=== PATIENT | male | born 1950 | race Caucasian/White ===

== ENCOUNTER 2022-09-24 12:28 | Outpatient (CLI) | payer MEDICARE | END 2022-09-24 12:29 | disposition critical access hospital (66) | LOC: EMS 12:28 | DX: M25.552 Pain in left hip (principal); M25.512 Pain in left shoulder; W11.XXXA Fall on and from ladder, initial encounter; Y92.61 Building [any] under construction as the place of occurrence of the external cause | CPT/HCPCS: A0425; A0427 ==

== ENCOUNTER 2022-09-24 12:44 | Emergency (ER) | payer MEDICARE, OTHER ==
--- NOTE | 2022-09-24 12:48 | ED Physician Documentation ---
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 No loss of consciousness or head strike. He complains of left shoulder and left hip pain. No other injuries. Pain is mild on arrival after [address] of f[address] on the way here. PD PAST MEDICAL HISTORY - Allergies Allergies/Adverse Reactions: Allergies Allergy/AdvReac Type Severity Reaction Status Date / Time No Known Drug Allergies Allergy Verified 09/24/22 14:11 PD ED PE NORMAL - Vitals Vital signs reviewed: Yes - General General: Alert and oriented X 3, No acute distress - HEENT HEENT: PERRL, EOMI - Neck Neck: Supple, no meningeal sign, No bony TTP, C-Spine cleared by NEXUS criteria (He arrives in a c-collar and it was removed on exam at 12:45 PM as he is cleared by Nexus criteria.) - Cardiac Cardiac: RRR, No murmur - Respiratory Respiratory: No respiratory distress, Clear bilaterally, Other (Mild tenderness left lateral lower ribs.) - Abdomen Abdomen: Soft, Non tender - Back Back: No CVA TTP, No spinal TTP - Derm Derm: Normal color, Warm and dry - Extremities Extremities: No deformity, Other (Some tenderness of the glenohumeral joint and unable to range the left shoulder. Internal and external rotation of the left hip is painless but he does have pain with lateral compression of the pelvis. No deformity.) - Neuro Neuro: Alert and oriented X 3, Normal speech Eye Opening: Spontaneous Motor: Obeys Commands Verbal: Oriented GCS Score: 15 Results - Vitals Vitals: Vital Signs - 24 hr 09/24/22 09/24/22 09/24/22 12:35 12:43 13:33 Temperature 36.9 C Heart Rate 75 77 Respiratory 18 18 17 Rate Blood Pressure 129/79 O2 Saturation 99 100 09/24/22 09/24/22 09/24/22 13:43 14:20 15:30 Temperature Heart Rate 85 Respiratory 21 17 18 Rate Blood Pressure 111/84 H O2 Saturation 98 09/24/22 09/24/22 15:47 18:02 Temperature 36.6 C Heart Rate 94 96 Respiratory 19 16 Rate Blood Pressure 123/82 H 119/83 H O2 Saturation 98 99 Oxygen O2 Source Room air - Labs Labs: Laboratory Tests 09/24/22 09/24/22 09/24/22 16:31 16:31 16:31 WBC 15.9 H RBC 3.77 L Hgb 12.7 L Hct 36.7 L MCV 97.3 H MCH 33.7 H MCHC 34.6 RDW 12.5 Plt Count 139 MPV 10.1 Neut # (Auto) 13.2 H Lymph # (Auto) 1.0 L [place] # (Auto) 1.4 H Eos # (Auto) 0.0 Baso # (Auto) 0.1 Absolute Nucleated RBC 0.00 Nucleated RBC % 0.0 PT 12.7 H INR 1.1 Sodium 138 Potassium 3.6 Chloride 106 Carbon Dioxide 22 Anion Gap 10.0 BUN 22 H Creatinine 1.0 Estimated GFR (MDRD) 73 L Glucose 174 H Calcium 9.0 Total Bilirubin 0.8 AST 47 H ALT 52 Alkaline Phosphatase 52 Total Protein 7.5 Albumin 4.4 Globulin 3.1 Albumin/Globulin Ratio 1.4 Lipase 27 - Rads (name of study) X-rays of the left shoulder, left ribs and chest, and left hip: Initially read as negative. I felt there was a pubic ramus fracture on the right Relevant Findings:: Final report received, Discussed with rads, EMP independent interpretation of test CT chest without acute trauma. Likely old T11 compression fracture. Fatty liver and scoliosis. Relevant Findings:: Final report received, EMP independent interpretation of test CT abdomen and pelvis left sacral fracture (radiologist missed the bilateral pubic rami fractures) Relevant Findings:: Final report received, EMP independent interpretation of test CT head and cervical spine are unremarkable. Relevant Findings:: Final report received, EMP independent interpretation of test PD Medical Decision Making - ED course ED course: 72-year-old gentleman with a fall from a height. Initially he said 5 feet, later he said he was 8 feet up on the ladder. He hit his left side, the shoulder and the pelvis for the most part. Initial imaging was read as negative, I called the radiologist and questioned him as I thought there was a right pubic ramus fracture and he amended his report as he agreed. Subsequently he was still having a lot of intractable pain, as much the shoulder as the pelvis, went over to CT where we noted that he had a fatty liver and he did have a mildly elevated AST. He admits to heavy drinking but plans to stop. Initial scans were read as having a sacral fracture but again pubic rami fractures were missed and I question the radiologist on these and he agreed and amended his reports that he does have bilateral pubic rami fractures. Now the question becomes with bilateral pubic rami fractures and a sacral fracture, is this a stable fracture would need some sort of fixation and [facility] was consulted and skin sent down there for their opinion. Subsequently they called back and he fits their "auto accept" criteria and was graciously excepted to the [facility] ED by Dr. Mario Mcdonnell at 6:40 PM. Departure - Departure Disposition: 02 Transfer Acute Care Hosp Clinical Impression: Fall from height of greater than 3 feet Fracture of left superior pubic ramus Qualifiers: Encounter type: initial encounter Fracture type: closed Qualified Code(s): S32.512A - Fracture of superior rim of left pubis, initial encounter for closed fracture Fracture of right superior pubic ramus Qualifiers: Encounter type: initial encounter Fracture type: closed Qualified Code(s): S32.511A - Fracture of superior rim of right pubis, initial encounter for closed fracture Sacral fracture Qualifiers: Encounter type: initial encounter Zone of sacrum fracture: unspecified portion of sacrum Fracture type: closed Qualified Code(s): S32.10XA - Unspecified fracture of sacrum, initial encounter for closed fracture Injury of left shoulder Qualifiers: Encounter type: initial encounter Qualified Code(s): S49.92XA - Unspecified injury of left shoulder and upper arm, initial encounter Abrasion of left elbow Qualifiers: Encounter type: initial encounter Qualified Code(s): S50.312A - Abrasion of left elbow, initial encounter Condition: Stable
--- NOTE | 2022-09-24 13:31 | XRAY Report ---
PROCEDURE: Shoulder 3 View LT INDICATIONS: Hip, shoulder, and left rib pain after fall TECHNIQUE: 3 views of the shoulder were acquired. COMPARISON: None. FINDINGS: Bones: No fractures or dislocations. No suspicious bony lesions. Visualized ribs appear intact. Soft tissues: No suspicious soft tissue calcifications. IMPRESSION: No acute bony abnormality. If pain persists with conservative management, consider repeat radiographs in 10-14 days or cross-sectional imaging. Reviewed by: Dileep Monet MD on 09/24/2022 1:30 PM PDT Approved by: Dileep Monet MD on 09/24/2022 1:30 PM PDT Station ID: [id number]
--- NOTE | 2022-09-24 13:31 | XRAY Report ---
PROCEDURE: Ribs w/PA Chest LT INDICATIONS: Hip, shoulder, and left rib pain after fall TECHNIQUE: 3 views of the left ribs were acquired, along with a single view chest. COMPARISON: None. FINDINGS: Surgical changes and devices: None. Bones and chest wall: No fractures or dislocations. No suspicious bony lesions. Overlying soft tis sues appear unremarkable. Lungs and pleura: No pleural effusions or pneumothorax. Lungs appear clear. Mediastinum: Mediastinal contours appear normal. Heart size is normal. IMPRESSION: No displaced rib fracture or pneumothorax. Reviewed by: Dileep Monet MD on 09/24/2022 1:30 PM PDT Approved by: Dileep Monet MD on 09/24/2022 1:30 PM PDT Station ID: [id number]
--- NOTE | 2022-09-24 13:31 | XRAY Report ---
PROCEDURE: Hip w/Pelvis 2-3V LT INDICATIONS: Hip, shoulder, and left rib pain after fall TECHNIQUE: AP pelvis with lateral view(s) of the left hip(s). COMPARISON: None. FINDINGS: Bones: No fractures or dislocations. No suspicious bony lesions. Soft tissues: No suspicious soft tissue calcifications or masses. IMPRESSION: No acute bony abnormality. If there remains a high clinical concern for fracture, including inability to bear weight, consider cross-sectional imaging to exclude an occult fracture. Reviewed by: Dileep Monet MD on 09/24/2022 1:29 PM PDT Approved by: Dileep Monet MD on 09/24/2022 1:29 PM PDT Station ID: [id number]
[2022-09-24] MEDS ORDERED: HYDROmorphone 1 MG/ML CARPUJECT IVP STA ×3 (13:56→19:48)
[2022-09-24] MEDS ORDERED: KETOROLAC 15 MG/ML VIAL IVP STA (13:56)
[2022-09-24] MEDS ORDERED: ONDANSETRON ODT 4 MG TABLET TL STA (15:34)
[2022-09-24 16:40] LABS: BASOPHILS # (AUTO) 0.1 10^3/uL (0.0-0.1); BASOPHILS % (AUTO) 0.3 %; EOSINOPHILS % (AUTO) 0.1 %; HCT - HEMATOCRIT 36.7 % (42.0-52.0); HGB - HEMOGLOBIN 12.7 g/dL (14.0-18.0); LYMPHOCYTES % (AUTO) 6.4 %; MEAN CORPUSCULAR HEMOGLOBIN 33.7 pg (27.0-31.0); MEAN CORPUSCULAR HGB CONC 34.6 g/dL (32.0-36.0); MEAN CORPUSCULAR VOLUME 97.3 fL (80.0-94.0); MEAN PLATELET VOLUME 10.1 fL (7.4-11.4); MONOCYTES # (AUTO) 1.4 10^3/uL (0.0-1.0); MONOCYTES % (AUTO) 8.7 %; NEUTROPHILS # (AUTO) 13.2 10^3/uL (1.5-6.6); NEUTROPHILS % (AUTO) 83.2 %; PLT - PLATELET COUNT 139 10^3/uL (130-450); RED BLOOD COUNT 3.77 10^6/uL (4.70-6.10); RED CELL DISTRIBUTION WIDTH 12.5 % (12.0-15.0); WHITE BLOOD COUNT 15.9 x10^3/uL (4.8-10.8)
[2022-09-24 16:53] LABS: ALBUMIN 4.4 g/dL (3.2-5.5); ALBUMIN/GLOBULIN RATIO 1.4 (1.0-2.2); BILIRUBIN,TOTAL 0.8 mg/dL (0.2-1.0); POTASSIUM 3.6 mmol/L (3.5-5.0); TOTAL PROTEIN 7.5 g/dL (6.7-8.2)
[2022-09-24 16:54] LABS: INR 1.1 (0.8-1.2); PT - PROTHROMBIN TIME 12.7 secs (9.9-12.6)
[2022-09-24] MEDS ORDERED: METOCLOPRAMIDE 10 MG/2 ML VIAL IVP STA (17:43)
--- NOTE | 2022-09-24 18:01 | CT Report ---
PROCEDURE: CHEST W INDICATIONS: Chest trauma, blunt, high energy CONTRAST: 100mL Omni 350 TECHNIQUE: After the administration of intravenous contrast, 1 mm axial images were acquired from the pulmonary apices through the posterior costophrenic angles. Axial 5 mm soft tissue kernel reconstructions were performed as well as 8 mm axial MIP and coronal and sagittal 5 mm reformations. For radiation dose reduction, the following was used: automated exposure control, adjustment of mA and/or kV according to patient size. COMPARISON: Correlation is made with the accompanying CT examinations.. FINDINGS: Image quality: Excellent. Lungs and pleura: No consolidation. No pleural effusions. No pneumothorax. No suspicious pulmonary n odules which require follow up. Mediastinum: Heart size is normal. No pericardial effusion. No large vessel abnormality. No mediastin al adenopathy by size criteria. Chest wall and lower neck: Scrutiny is given to the left ribs. No displaced rib fractures are seen. Thyroid is unremarkable. No axillary or supraclavicular adenopathy by size. Bones: There is a remote appearing compression of arteries seen involving the superior endplate of T1 1, with 20% loss of height anteriorly. No posterior displacement of fracture fragments can be seen. Mild levoconvex scoliotic curvature is seen. Upper Abdomen: Diffuse fatty liver infiltration can be seen. IMPRESSION: Negative for rib fracture or pneumothorax. There is a remote-appearing T11 compression fracture seen. However, please correlate with focal tende rness in this patient with trauma. Additional findings: Levoconvex thoracic scoliotic curvature. Fatty liver infiltration Reviewed by: Slava Laguna MD on 09/24/2022 4:59 PM KWESI Approved by: Slava Laguna MD on 09/24/2022 4:59 PM KWESI Station ID: [id number]
[2022-09-24 18:05] VITALS: BP 119/83
--- NOTE | 2022-09-24 18:05 | CT Report ---
PROCEDURE: ABDOMEN/PELVIS W INDICATIONS: Abdominal trauma, blunt CONTRAST: 100mL Omni 350 TECHNIQUE: After the administration of IV contrast, 5 mm thick sections acquired from the diaphragms to the symp hysis. 5 mm thick coronal and sagittal reformats were acquired. For radiation dose reduction, the f ollowing was used: automated exposure control, adjustment of mA and/or kV according to patient size. COMPARISON: Correlation is made with the accompanying CT examinations. FINDINGS: Image quality: Excellent. Lung bases and heart: Unremarkable. Liver: Diffuse fatty liver infiltration can be seen. Gallbladder and biliary tree: Within normal limits. Spleen: No splenomegaly. Pancreas: No pancreatic ductal dilation. Adrenals: No adrenal nodule. Kidneys and ureters: No hydronephrosis. No renal cystic lesion which requires follow up. No solid mas s. Bowel and peritoneum: No bowel distension. No pathologic free fluid. Lymph nodes: No central or retroperitoneal adenopathy. Vessels: No infrarenal aortic aneurysm. PELVIS Reproductive organs: Unremarkable. Bladder: No abnormal wall thickening, accounting for underdistension. Pelvic lymph nodes: No pelvic adenopathy by size criteria. Bones: There is a mildly displaced, vertically oriented fracture seen involving the left sacral ala, which is best demonstrated on series 6 image 38 and on series 3 image 53. This fracture continues tow ards the midline and can be seen involving the S2 level and the S3 level anteriorly. No definite gregorio tional fracture of the bones of the pelvis can be seen. There is a remote-appearing T11 anterior wedge deformity, with 20% loss of height anteriorly. No additional vertebral body fracture can be seen. Degenerative changes are seen throughout, particularly involving the lumbar spine. Other: No significant ventral or inguinal hernia. IMPRESSION: Left-sided sacral fracture seen. Remote-appearing T11 anterior wedge deformity. However, please correlate with focal tenderness. Additional findings: Fatty liver infiltration Lumbar spine degenerative change Reviewed by: Slava Laguna MD on 09/24/2022 5:03 PM KWESI Approved by: Slava Laguna MD on 09/24/2022 5:03 PM KWESI Station ID: [id number]
--- NOTE | 2022-09-24 18:12 | CT Report ---
PROCEDURE: CT cervical spine without contrast INDICATIONS: fall from height TECHNIQUE: Noncontrast 3 mm thick sections acquired from the skull base to the T4 level. Sagittal and coronal r eformats were then constructed. For radiation dose reduction, the following was used: automated exp osure control, adjustment of mA and/or kV according to patient size. COMPARISON: None. FINDINGS: Image quality: Excellent. Bones: No fractures or dislocations. Visualized superior ribs are intact. There is reversal of nor mal cervical lordosis. Disc space narrowing and facet arthropathy noted in the mid to lower cervical spine. Normal bone mineralization. Craniovertebral relationships are normal. Mild to moderate central stenosis noted at C5-6 Soft tissues: Prevertebral soft tissues are normal in thickness. No paravertebral hematomas. No ap ical pneumothoraces. 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
--- NOTE | 2022-09-24 18:13 | CT Report ---
PROCEDURE: CT brain without contrast INDICATIONS: Head trauma, mod-severe TECHNIQUE: Noncontrast 4.5 mm thick angled axial sections acquired from the foramen magnum to the vertex. For r adiation dose reduction, the following was used: automated exposure control, adjustment of mA and/or kV according to patient size. COMPARISON: None. FINDINGS: Image quality: Excellent. CSF spaces: Basal cisterns are patent. No extra-axial fluid collections. Ventricles are normal in size and shape. Brain: No midline shift. No intracranial masses or hemorrhage. Hwang-white matter interface is norm al. Skull and face: Calvarium and visualized facial bones are intact, without suspicious lesions. Sinuses: Visualized sinuses and mastoids are clear. IMPRESSION: Unremarkable CT brain. No intracranial hemorrhage or mass effect Reviewed by: Serge Jaffe MD on 09/24/2022 5:12 PM AKDT Approved by: Serge Jaffe MD on 09/24/2022 5:12 PM AKDT Station ID: [id number]
== END 2022-09-24 20:00 | disposition short-term general hospital (02) ==
LOC: ED 12:44
DX: S32.512A Fracture of superior rim of left pubis, initial encounter for closed fracture (principal); S32.511A Fracture of superior rim of right pubis, initial encounter for closed fracture; S32.10XA Unspecified fracture of sacrum, initial encounter for closed fracture; S49.92XA Unspecified injury of left shoulder and upper arm, initial encounter; S50.312A Abrasion of left elbow, initial encounter; W11.XXXA Fall on and from ladder, initial encounter
CPT/HCPCS: 36415; 70450; 71101; 71260; 72125; 73030; 73502; 74177; 80053; 83690; 85025; 85610; 87635; 96374; 96375; 96376; 99284; 99285; J1170; J2765; Q0162; Q9967

== ENCOUNTER 2022-09-24 19:57 | Outpatient (CLI) | payer MEDICARE | END 2022-09-24 23:59 | disposition short-term general hospital (02) | LOC: EMS 19:57 | PROVIDERS: ATTEND Emergency Medicine | DX: S32.9XXA Fracture of unspecified parts of lumbosacral spine and pelvis, initial encounter for closed fracture (principal); W11.XXXA Fall on and from ladder, initial encounter | CPT/HCPCS: A0425; A0426 ==